=== PATIENT | male | born 1975 | race Caucasian/White ===

== ENCOUNTER 2018-12-31 16:52 | Inpatient (IN) | payer SELFPAY ==
[2018-12-31 20:35] VITALS: BMI 32.5
--- NOTE | 2018-12-31 21:38 | HP ---
CIWA Score Nausea/Vomitin-No Nausea/No Vomiting Muscle Tremors: 1-None Visible, but [place] Anxiety: 3 Agitation: 4-Moderately Restless Paroxysmal Sweats: 2 Orientation: 0-Oriented Tacttile Disturbances: 1-Very Mild Itch/Numbness Auditory Disturbances: 0-None Visual Disturbances: 1-Very Mild Sensitivity Headache: 0-None Present CIWA-Ar Total Score: 12 - Admission Criteria OASAS Guidelines: Admission for Medically Managed Detox: Requires at least one of the followin. CIWA greater than 12 2. Seizures within the past 24 hours 3. Delirium tremens within the past 24 hours 4. Hallucinations within the past 24 hours 5. Acute intervention needed for co occurring medical disorder 6. Acute intervention needed for co occurring psychiatric disorder 7. Severe withdrawal that cannot be handled at a lower level of care (continued vomiting, continued diarrhea, abnormal vital signs) requiring intravenous medication and/or fluids 8. Patient presents the following: CIWA greater than 12 Admission Criteria Met: Admission criteria met Admission ROS [facility] Chief Complaint: alcohol detox Allergies/Adverse Reactions: Allergies Allergy/AdvReac Type Severity Reaction Status Date / Time No Known Drug Allergies Allergy Verified 12/31/18 20:27 History of Present Illness: 43 yo male with hx of alcohol and cocaine dependence is here seeking detox d/t withdrawal symptoms reports referred in [facility], fist time in patient detox. Reports sober for two years and relapse October 19, 2017 with daily drinks a gallon of henessy, last drink yesterday . PMHX: asthma , chronic back pain. Reports feeling depressed after from his . Reports visual hallucinations, last episode two days ago. Denies hx of falls, seizures or blackouts. Exam Limitations: No Limitations - Ebola screening Have you traveled outside of the country in the last 21 days: No Have you had contact with anyone from an Ebola affected area: No Do you have a fever: No - Review of Systems Constitutional: Loss of Appetite, Night Sweats, Changes in sleep, Weakness, Other (fatigue) EENT: reports: No Symptoms Reported Respiratory: reports: SOB with Exertion Cardiac: reports: Palpitations GI: reports: Poor Appetite, Poor Fluid Intake, Indigestion, Abdominal cramping : reports: No Symptoms Reported Musculoskeletal: reports: Back Pain (chronic) Integumentary: reports: Dryness Neuro: reports: Weakness Endocrine: reports: Increased Thirst Hematology: reports: No Symptoms Reported Psychiatric: reports: Orientated x3, Agitated, Depressed Patient History - Patient Medical History Hx Anemia: No Hx Asthma: Yes Hx Chronic Obstructive Pulmonary Disease (COPD): No Hx Cancer: No Hx Cardiac Disorders: No Hx Congestive Heart Failure: No Hx Hypertension: No Hx Hypercholesterolemia: No Hx Pacemaker: No HX Cerebrovascular Accident: No Hx Seizures: No Hx Dementia: No Hx Diabetes: No Hx Gastrointestinal Disorders: No Hx Liver Disease: No Hx Genitourinary Disorders: No Hx Sexually Transmitted Disorders: No Hx Renal Disease (ESRD): No Hx Thyroid Disease: No Hx Human Immunodeficiency Virus (HIV): No Hx Hepatitis C: No Hx Depression: Yes Hx Suicide Attempt: No Hx Bipolar Disorder: No Hx Schizophrenia: No - Patient Surgical History Past Surgical History: Yes Other Surgical History: back surgery 2011 Anesthesia Reaction: No - PPD History Previous Implant?: No Documented Results: Negative w/o proof PPD to be Administered?: Yes - Smoking Cessation Smoking history: Current every day smoker Have you smoked in the past 12 months: Yes Aproximately how many cigarettes per day: 60 Hx Chewing Tobacco Use: No Initiated information on smoking cessation: Yes 'Breaking Loose' booklet given: 12/31/18 - Substance & Tx. History Hx Alcohol Use: Yes Hx Substance Use: Yes Substance Use Type: Alcohol, Cocaine Hx Substance Use Treatment: No - Substances abused Alcohol Substance route: Oral Frequency: Daily Amount used: Liquor 1 gallon Age of first use: 20 Date of last use: 12/30/18 Cocaine Substance route: Inhalation Frequency: Daily Amount used: 3-4 gm Age of first use: 20 Date of last use: 12/31/18 Family Disease History - Family Disease History Family Disease History: Other: Mother ( asthama attack ) Admission Physical Exam [facility] - Vital Signs Vital Signs: Vital Signs - 24 hr 12/31/18 20:18 Temperature 97.0 F L Pulse Rate 86 Respiratory 18 Rate Blood Pressure 125/82 - Physical General Appearance: Yes: Disheveled, Anxious HEENTM: Yes: EOMI, Hearing grossly Normal, Normal ENT Inspection, Normocephalic , Normal Voice, Pharynx Normal, Tm's normal Respiratory: Yes: Chest Non-Tender, Lungs Clear, Normal Breath Sounds, No Respiratory Distress, No Accessory Muscle Use Neck: Yes: Within Normal Limits Breast: Yes: Breast Exam Deferred Cardiology: Yes: Regular Rhythm, Regular Rate Abdominal: Yes: Normal Bowel Sounds, Non Tender, Soft, Protuberent, Other (+ RUQ tenderness) Genitourinary: Yes: Within Normal Limits Back: Yes: Normal Inspection Musculoskeletal: Yes: full range of Motion, Gait Steady, Pelvis Stable, Back pain Extremities: Yes: Normal Capillary Refill, Normal Inspection, Normal Range of Motion, Non-Tender Neurological: Yes: jordan man II-XII NML intact, Fully Oriented, Alert, Motor Strength 5/5, Depressed Affect Integumentary: Yes: Normal Color, Warm, Diaphoresis Lymphatic: Yes: Within Normal Limits - Diagnostic (1) Asthma Current Visit: Yes Status: Chronic Qualifiers: Asthma severity: mild Asthma persistence: intermittent Asthma complication type: uncomplicated Qualified Code(s): J45.20 - Mild intermittent asthma, uncomplicated (2) Alcohol dependence with uncomplicated withdrawal Current Visit: Yes Status: Acute (3) Back pain Current Visit: Yes Status: Chronic Qualifiers: Back pain location: low back pain Chronicity: chronic Sciatica presence: without sciatica Cleared for Admission S - Detox or Rehab [facility] Level of Care: Medically Managed Detox Regimen/Protocol: Librium Breathalyzer - Breathalyzer Breathalyzer: 0 Urine Drug Screen - Test Device Lot number: [id number] Expiration date: 07/31/20 - Control Is test valid?: Yes - Results Urine drug screen results: MANISHA-Cocaine Inpatient Rehab Admission - Rehab Decision to Admit Inpatient rehab admission?: No
[2018-12-31] MEDS ORDERED: MAGNESIUM CITRATE 300 ML BOTTLE PO PRN (21:46)
[2018-12-31] MEDS ORDERED: MENTHOL/PHENOL 1 EACH UD MM PRN (21:46)
[2018-12-31] MEDS ORDERED: hydrOXYzine PAMOATE 25 MG CAPSULE (FP) PO PRN ×2 (21:46→21:50)
[2018-12-31] MEDS ORDERED: MELATONIN 5 MG TABLETS PO PRN (21:46)
[2018-12-31] MEDS ORDERED: IBUPROFEN 400 MG TABLET (FP) PO PRN (21:46)
[2018-12-31] MEDS ORDERED: NICOTINE POLACRILEX 4 MG GUM BUC PRN (21:46)
[2018-12-31] MEDS ORDERED: METHOCARBAMOL 500 MG TABLET PO PRN (21:46)
[2018-12-31] MEDS ORDERED: MAGNESIUM HYDROX 2400MG/30ML ORAL SUSPENSION 30 ML CUP PO PRN (21:46)
[2018-12-31] MEDS ORDERED: ACETAMINOPHEN 325 MG TABLET (FP) PO PRN ×2 (21:46)
[2018-12-31] MEDS ORDERED: BISMUTH SUBSALICYLATE 524 MG/30 ML UD PO PRN (21:46)
[2018-12-31] MEDS ORDERED: chlordiazePOXIDE HCL 25 MG CAPSULE PO PRN (21:46)
[2018-12-31] MEDS ORDERED: ALBUTEROL SO4 8 GM HFA INHALER IH PRN (21:51)
[2018-12-31] MEDS ORDERED: ALBUTEROL SO4 0.083% IH SOL 2.5 MG/3 ML VIAL.NEB. NEB PRN (21:51)
[2018-12-31] MEDS: chlordiazePOXIDE HCL 25 MG CAPSULE PO SCH (22:40)
[2018-12-31] MEDS: THIAMINE HCL 100 MG TABLET (FP) PO SCH (22:40)
[2019-01-01] MEDS: chlordiazePOXIDE HCL 25 MG CAPSULE PO SCH ×4 (05:36→22:07)
[2019-01-01 10:13] LABS: HEMATOCRIT 36.4 % (35.4-49); HEMOGLOBIN 11.6 GM/dL (11.7-16.9); MCHC 31.9 g/dl (32.0-35.9); MEAN CELL VOLUME 78.3 fl (80-96); MEAN PLT VOLUME 7.4 fl (7.5-11.1); PLATELET COUNT 390 K/MM3 (134-434); RBC 4.64 M/mm3 (4.00-5.60); RDW 15.2 % (11.9-15.9); WHITE BLOOD COUNT 9.4 K/mm3 (4.0-10.0)
[2019-01-01 10:21] LABS: ALBUMIN 3.4 g/dl (3.4-5.0); ALK PHOS 102 U/L (45-117); ANION GAP 7 MMOL/L (8-16); BILIRUBIN,TOTAL 0.2 mg/dL (0.2-1); BLOOD UREA NITROGEN 12 mg/dL (7-18); CALCIUM 8.7 mg/dL (8.5-10.1); CHLORIDE 106 mmol/L (98-107); CO2 29 mmol/L (21-32); GLUCOSE,RANDOM 100 mg/dL (74-106); POTASSIUM 3.6 mmol/L (3.5-5.1); SGOT/AST 8 U/L (15-37); SGPT/ALT 23 U/L (13-61); SODIUM 141 mmol/L (136-145); TOT PROT 6.8 g/dl (6.4-8.2)
[2019-01-01] MEDS: PRENATAL VITAMINS W/ FOLIC ACID TABLET (FP) PO SCH (10:22)
[2019-01-01] MEDS: NICOTINE 21 MG/24 HOURS TOPICAL PATCH TD SCH (10:22)
--- NOTE | 2019-01-01 10:58 | EKG ---
Test Reason : Blood Pressure : / mmHG Vent. Rate : 083 BPM Atrial Rate : 083 BPM P-R Int : 134 ms QRS Dur : 086 ms QT Int : 342 ms P-R-T Axes : 034 045 034 degrees QTc Int : 401 ms NORMAL SINUS RHYTHM NONSPECIFIC ST ABNORMALITY NO PREVIOUS ECGS AVAILABLE Confirmed by JILL SOLORZANO MD ([id number]) on 01/01/2019 10:58:38 AM Referred By: ARLET HAGER Confirmed By:JILL SOLORZANO MD
--- NOTE | 2019-01-01 14:40 | CONSULT ---
[facility] Psychiatric Consult - Data Date of interview: 01/01/19 Admission source: [facility] Identifying data: First admission to [facility] for this 43 y/o male self-referred for detoxification treatment (alcohol, cocaine). Examined at [address] [place] [address]. Patient is , a father of two, domiciled, disabled since a job- related accident in 2011 (fall from six stories when scaffold collapsed), unemployed and supported on SSD + Workman's Compensation benefits. Substance Abuse History: Confirmed by patient in this interview. Details in current [facility] report as follows : Smoking history: Current every day smoker. Have you smoked in the past 12 months: Yes. Aproximately how many cigarettes per day: 60. Hx Chewing Tobacco Use: No. Initiated information on smoking cessation: Yes. 'Breaking Loose' booklet given: 12/31/18. - Substance & Tx. History. Hx Alcohol Use: Yes. Hx Substance Use: Yes. Substance Use Type: Alcohol, Cocaine. Hx Substance Use Treatment: No. - Substances abused. Alcohol. Substance route: Oral. Frequency: Daily. Amount used: Liquor 1 gallon. Age of first use: 20. Date of last use: 12/30/18. Cocaine. Substance route: Inhalation. Frequency: Daily. Amount used: 3-4 gm. Age of first use: 20. Date of last use: 12/31/18 Medical History: Remarkable for bronchial asthma, chronic lumbar pain and a history of surgeries (abdominal + lumbar spine). Noted additional history of coma for six months (after falling six stories in 2011). Psychiatric History: No history of psychiatric hospitalizations, suicide attempts or OPD care. Physical/Sexual Abuse/Trauma History: Patient denies history of abuse. Traumatized by the consequences of physical disability (unemployment). Additional Comment: Urine drug screen results: MANISHA-Cocaine. Noted. Mental Status Exam - Mental Status Exam Alert and Oriented to: Time, Place, Person Cognitive Function: Good Patient Appearance: Well Groomed (tattoos on both upper extremities) Mood: Hopeful Affect: Appropriate, Mood Congruent, Normal Range Patient Behavior: Fatigued, Appropriate, Cooperative Speech Pattern: Clear, Appropriate Voice Loudness: Normal Thought Process: Intact, Goal Oriented Thought Disorder: Not Present Hallucinations: Denies Suicidal Ideation: Denies Homicidal Ideation: Denies Insight/Judgement: Poor Sleep: Poorly, Difficulty falling asleep Appetite: Good Muscle strength/Tone: Normal Gait/Station: Normal Psychiatric Findings - Problem List ([place] 1, 2,3) (1) Alcohol dependence with uncomplicated withdrawal Current Visit: Yes Status: Acute (2) Cocaine dependence Current Visit: Yes Status: Chronic (3) Nicotine dependence Current Visit: Yes Status: Chronic (4) Insomnia Current Visit: Yes Status: Chronic - Initial Treatment Plan Initial Treatment Plan: Psychoeducation. Sleep hygiene. Support. AA meetings. Relapse prevention (MAT) : discussed with the patient. Seroquel 50 mg po hs ( patient's request). Ordered. Side effects/benefits discussed with patient. Consent (verbal) given to . Observation.
--- NOTE | 2019-01-01 15:01 | PN ---
S CIWA - CIWA Score Nausea/Vomitin-Mild Nausea/No Vomiting Muscle Tremors: 1-None Visible, but [place] Anxiety: 1-Mildly Anxious Agitation: 1-Slight > Activity Paroxysmal Sweats: 1-Minimal Palms Moist Orientation: 0-Oriented Tacttile Disturbances: 0-None Auditory Disturbances: 0-None Visual Disturbances: 0-None Headache: 1-Very Mild CIWA-Ar Total Score: 6 B[facility] Progress Note (SOAP) Subjective: day #2 of alcohol detox, states he is fine on protocol O: Vital Signs - 24 hr 12/31/18 12/31/18 01/01/19 20:18 22:42 00:47 Temperature 97.0 F L 98.7 F Pulse Rate 86 84 Respiratory 18 18 18 Rate Blood Pressure 125/82 117/71 01/01/19 01/01/19 01/01/19 03:30 06:40 09:19 Temperature 97.4 F L 96.6 F L Pulse Rate 88 75 Respiratory 18 18 20 Rate Blood Pressure 107/60 100/61 01/01/19 13:41 Temperature 96.3 F L Pulse Rate 83 Respiratory 18 Rate Blood Pressure 112/72 Laboratory Tests 01/01/19 01/01/19 01/01/19 07:00 07:00 07:00 WBC 9.4 RBC 4.64 Hgb 11.6 L Hct 36.4 MCV 78.3 L MCH 25.0 L MCHC 31.9 L RDW 15.2 Plt Count 390 MPV 7.4 L Sodium 141 Potassium 3.6 Chloride 106 Carbon Dioxide 29 Anion Gap 7 L BUN 12 Creatinine 1.0 Creat Clearance w eGFR 82.35 Random Glucose 100 Calcium 8.7 Total Bilirubin 0.2 AST 8 L ALT 23 Alkaline Phosphatase 102 Total Protein 6.8 Albumin 3.4 RPR Titer Nonreactive a/p: continue alcohol detox protocol- pt doing well today
[2019-01-01] MEDS: MAG HYDROX/AL HYDROX/SIMETH 30 ML UNIT-DOSE CUP PO PRN (19:55)
[2019-01-01] MEDS ORDERED: QUEtiapine FUMARATE 50 MG TABLET PO SCH (22:00)
[2019-01-01] MEDS: THIAMINE HCL 100 MG TABLET (FP) PO SCH (22:07)
[2019-01-02] MEDS: chlordiazePOXIDE HCL 25 MG CAPSULE PO SCH ×2 (06:00→10:21)
[2019-01-02] MEDS: MAG HYDROX/AL HYDROX/SIMETH 30 ML UNIT-DOSE CUP PO PRN ×2 (06:22→11:48)
[2019-01-02] MEDS: NICOTINE 21 MG/24 HOURS TOPICAL PATCH TD SCH (10:21)
[2019-01-02] MEDS: PRENATAL VITAMINS W/ FOLIC ACID TABLET (FP) PO SCH (10:21)
--- NOTE | 2019-01-02 12:45 | PN ---
S CIWA - CIWA Score Nausea/Vomitin-No Nausea/No Vomiting Muscle Tremors: 4-Moderate,w/Arms Extend Anxiety: 4-Mod. Anxious/Guarded Agitation: 4-Moderately Restless Paroxysmal Sweats: 1-Minimal Palms Moist Orientation: 0-Oriented Tacttile Disturbances: 0-None Auditory Disturbances: 0-None Visual Disturbances: 0-None Headache: 0-None Present CIWA-Ar Total Score: 13 BHS Progress Note (SOAP) Subjective: PT C/O SWEATS AND FATIGUE. Objective: 01/02/19 12:43 Vital Signs 01/02/19 01/02/19 06:14 09:43 Temperature 97.0 F L 97.2 F L Pulse Rate 76 83 Respiratory 18 16 Rate Blood Pressure 109/75 109/61 Laboratory Tests 01/01/19 01/01/19 01/01/19 07:00 07:00 07:00 WBC 9.4 RBC 4.64 Hgb 11.6 L Hct 36.4 MCV 78.3 L MCH 25.0 L MCHC 31.9 L RDW 15.2 Plt Count 390 MPV 7.4 L Sodium 141 Potassium 3.6 Chloride 106 Carbon Dioxide 29 Anion Gap 7 L BUN 12 Creatinine 1.0 Creat Clearance w eGFR 82.35 Random Glucose 100 Calcium 8.7 Total Bilirubin 0.2 AST 8 L ALT 23 Alkaline Phosphatase 102 Total Protein 6.8 Albumin 3.4 RPR Titer Nonreactive Assessment: 01/02/19 12:45 WITHDRAWAL SX Plan: CONTINUE DETOX INCREASE PO FLUIDS
[2019-01-02 13:44] VITALS: BP 117/71; PULSE 87; TEMP 96.7
--- NOTE | 2019-01-02 14:42 | DS ---
[facility] Detox Discharge Summary Admission Date: 12/31/18 Discharge Date: 01/02/19 - History Present History: Alcohol Dependence Additional Comments: PT DECLINED TO CONTINUE WITH DETOX STATING "MY IS BUGGING OUT AND TAKING MY CAR INSURANCE STUFF. I HAVE TO GO AND TAKE CARE OF MY PROBLEMS. I SHOULDN'T HAVE EVEN MADE THAT PHONE CALL". PT WAS GIVEN REFERRAL BY COUNSELOR TO [facility] FOR AFTERCARE FOLLOW UP AFTER DISCHARGE. PT REPORTS HE HAS NO PCP BUT GOES TO [facility] IF NEEDED FOR MEDICAL CARE. - Physical Exam Results Vital Signs: Vital Signs Temperature 96.7 F L 01/02/19 13:43 Pulse Rate 87 01/02/19 13:43 Respiratory Rate 18 01/02/19 13:43 Blood Pressure 117/71 01/02/19 13:43 O2 Sat by Pulse Oximetry (%) Pertinent Admission Physical Exam Findings: WITHDRAWAL SX Laboratory Tests 01/01/19 01/01/19 01/01/19 07:00 07:00 07:00 WBC 9.4 RBC 4.64 Hgb 11.6 L Hct 36.4 MCV 78.3 L MCH 25.0 L MCHC 31.9 L RDW 15.2 Plt Count 390 MPV 7.4 L Sodium 141 Potassium 3.6 Chloride 106 Carbon Dioxide 29 Anion Gap 7 L BUN 12 Creatinine 1.0 Creat Clearance w eGFR 82.35 Random Glucose 100 Calcium 8.7 Total Bilirubin 0.2 AST 8 L ALT 23 Alkaline Phosphatase 102 Total Protein 6.8 Albumin 3.4 RPR Titer Nonreactive - Treatment Hospital Course: Discharged Condition Good - Medication Discharge Medications: Ambulatory Orders Albuterol Sulfate Inhaler - [Ventolin Hfa Inhaler -] 1 - 2 inh PO QID 12/31/18 Prednisone 30 mg PO PRN 12/31/18 - Diagnosis (1) Alcohol dependence with uncomplicated withdrawal Status: Acute (2) Asthma Status: Chronic Qualifiers: Asthma severity: mild Asthma persistence: intermittent Asthma complication type: uncomplicated Qualified Code(s): J45.20 - Mild intermittent asthma, uncomplicated (3) Cocaine dependence Status: Acute Qualifiers: Substance use status: uncomplicated Qualified Code(s): F14.20 - Cocaine dependence, uncomplicated (4) Nicotine dependence Status: Acute Qualifiers: Nicotine product type: cigarettes Substance use status: in withdrawal Qualified Code(s): F17.213 - Nicotine dependence, cigarettes, with withdrawal - AMA Did Patient Leave Against Medical Advice: Yes
[2019-01-02] MEDS ORDERED: chlordiazePOXIDE HCL 10 MG CAPSULE PO SCH (23:00)
[2019-01-02] MEDS ORDERED: chlordiazePOXIDE HCL 10 MG CAPSULE PO PRN (23:00)
[2019-01-03] MEDS ORDERED: chlordiazePOXIDE HCL 10 MG CAPSULE PO SCH (23:00)
== END 2019-01-02 15:12 | disposition left against medical advice (07) | DRG 770 ==
LOC: YASAS 16:52 → Y3N 21:58
PROVIDERS: ADMIT Surgery; ATTEND Surgery
PROC: HZ2ZZZZ Detoxification Services for Substance Abuse Treatment (ICD-10-PCS; principal; 2018-12-31)
DX: F10.230 Alcohol dependence with withdrawal, uncomplicated (principal); F14.20 Cocaine dependence, uncomplicated; F17.213 Nicotine dependence, cigarettes, with withdrawal; J45.20 Mild intermittent asthma, uncomplicated; G47.00 Insomnia, unspecified; M54.5 Low back pain; G89.29 Other chronic pain; S10.96XA Insect bite of unspecified part of neck, initial encounter; W57.XXXA Bitten or stung by nonvenomous insect and other nonvenomous arthropods, initial encounter; Y93.89 Activity, other specified; Y92.238 Other place in hospital as the place of occurrence of the external cause; Y99.8 Other external cause status
CPT/HCPCS: 36415; 80053; 85027; 86593; 93005; 93010